=== PATIENT | female | born 1970 | race Hispanic/Latino ===

== ENCOUNTER 2024-02-11 11:54 | Observation (INO) | payer BC ==
[~2024-02-11] VITALS: Ht 154.9 cm; Wt 78.0 kg
--- NOTE | 2024-02-11 12:08 | ERN ---
ED Note History of Present Illness Stated Complaint: GENERAL BODY WEAKNESS N/V ABDOMINAL PAIN Chief Complaint: Abdominal Pain Time Seen by MD: 11:57 Dictation: PATIENT IS A 53-YEAR-OLD FEMALE COMING IN TODAY WITH MODERATE TO SEVERE SUPRAPUBIC AND LEFT LOWER QUADRANT PAIN TENDERNESS ONSET THIS MORNING. NAUSEA WITHOUT VOMITING NO FEVER NO CHILLS NO FLANK PAIN. STATES SHE JUST FINISHED A ROUND OF CIPRO THREE DAYS AGO FROM HER PRIMARY CARE DOCTOR FOR URINARY TRACT INFECTION. 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, vertigo Surgical History: Other History: Not Applicable RN Note Reviewed/Agreed w/PFSH: Yes Review of System Dictation CONSTITUTIONAL: NEGATIVE EXCEPT FOR HPI HEAD/FACE: NEGATIVE EXCEPT FOR HPI EENT: NEGATIVE EXCEPT FOR HPI RESPIRATORY: NEGATIVE EXCEPT FOR HPI GASTROINTESTINAL/ABDOMINAL: NEGATIVE EXCEPT FOR HPI SUPRAPUBIC AND LEFT LOWER QUADRANT PAIN TENDERNESS GENITOURINARY: NEGATIVE EXCEPT FOR HPI MUSCULOSKELETAL: NEGATIVE EXCEPT FOR HPI INTEGUMENTARY: NEGATIVE EXCEPT FOR HPI NEUROLOGICAL/PSYCH: NEGATIVE EXCEPT FOR HPI HEMATOLOGIC/LYMPHATIC: NEGATIVE EXCEPT FOR HPI ALL SYSTEMS NEGATIVE, EXCEPT NOTED ABOVE. 13 POINT REVIEW OF SYSTEMS ASSESSED AND ALL NEGATIVE EXCEPT FOR ABOVE. Initial Vital Sign VS Vital Signs Date Time Temp Pulse Resp B/P (MAP) Pulse Ox O2 Delivery O2 Flow Rate FiO2 02/11/24 11:56 98.1 76 18 130/80 98 02/11/24 12:16 Room Air* 0 21 Physical Exam Dictation VITAL SIGNS REVIEWED GENERAL APPEARANCE: ALERT, ORIENTED X 3, MODERATE ACUTE DISTRESS, WELL DEVELOPED, NOURISHED. HEAD AND FACE: NON-TRAUMATIC. EYES: PERRL, PINK CONJUNCTIVAS, EYELID NO TRAUMA, ANTERIOR CHAMBER WITH ARCUS SENILIS. EARS: PINNAS INTACT AND NO SIGNS OF TRAUMA OR ERYTHEMA EAR CANALS CLEAR AND NO DISCHARGE TM NO ERYTHEMA NOSE: NO DISCHARGE, NO BLEEDING. OROPHARYNX: MOUTH NORMAL, TONGUE PINK, PHARYNX CLEAR,NO ERYTHEMA, TONSILS NO EXUDATES, NO ABSCESSES NOTED, MUCOUS MEMBRANE MOIST NECK: SUPPLE, NON-TENDER, NO THYROMEGALY, NO MASSES, NO JVD, NO BRUITS BREAST:DEFERRED CHEST:NO TENDERNESS, NO CREPITUS, NO PARADOXICAL MOVEMENT, NO RETRACTIONS LUNGS:CLEAR, WELL-VENTILATED, SYMMETRIC, NO RALES, NO WHEEZING, NO RHONCHI, NO STRIDOR, GOOD BREATH SOUNDS BILATERALLY HEART: REGULAR RATE, REGULAR RHYTHM, NO MURMUR, NO GALLOPS VASCULAR: NO PERIPHERAL EDEMA, ABDOMEN: SOFT, POSITIVE BOWEL SOUNDS, NONDISTENDED, NO GUARDING, MODERATE SUPRAPUBIC AND LEFT LOWER QUADRANT TENDERNESS WITH PALPATION. RECTAL: DEFERRED GENITAL: DEFERRED NEUROLOGICAL: NORMAL SPEECH, MOTOR FUNCTION INTACT, SENSORY FUNCTION INTACT MUSCULOSKELETAL: NECK NONTENDER, FULL RANGE OF MOTION, BACK NONTENDER, FULL RANGE OF MOTION, EXTREMITIES: NONTENDER, FULL RANGE OF MOTION SKIN: COLOR PINK, DRY, NO TURGOR, NO RASH, NO LACERATIONS, NO ABRASIONS, NO CONTUSIONS. LYMPHATIC: DEFERRED Results (Laboratory/Radiology) Laboratory/Radiology Laboratory Tests Test 02/11/24 12:18 02/11/24 13:43 White Blood Count 17.3 K/uL (4.8-10.8) H Red Blood Count 4.37 MIL/uL (4.00-5.50) Hemoglobin 14.4 g/dL (12.0-16.0) Hematocrit 42.2 % (36-48) Mean Corpuscular Volume 96.6 fL (79-99) Mean Corpuscular Hemoglobin 33.0 pg (27.0-33.0) Mean Corpuscular Hemoglobin Concent 34.1 g/dL (32.0-36.0) Red Cell Distribution Width 13.9 % (11.0-15.5) Platelet Count 300 K/uL (130-400) Mean Platelet Volume 10.4 fL (7.5-10.5) Immature Granulocyte % (Auto) 0.6 % (0-1) Neutrophils (%) (Auto) 91.3 % (40.0-77.0) H Lymphocytes (%) (Auto) 5.1 % (21.0-51.0) L Monocytes (%) (Auto) 2.6 % (3.0-13.0) L Eosinophils (%) (Auto) 0.1 % (0.0-8.0) Basophils (%) (Auto) 0.3 % (0.0-5.0) Neutrophils # (Auto) 15.9 K/uL (1.8-7.7) H Lymphocytes # (Auto) 0.9 K/uL (1.0-4.8) L Monocytes # (Auto) 0.5 K/uL (0.1-1.0) Eosinophils # (Auto) 0.01 K/uL (0.00-0.70) Basophils # (Auto) 0.05 K/uL (0.00-0.20) Absolute Immature Granulocyte (auto 0.10 K/uL (0-1) Nucleated Red Blood Cells 0.0 % (0.0-0.19) White Cell Morphology Comment See comments Sodium Level 138 mmol/L (136-145) Potassium Level 4.0 mmol/L (3.5-5.1) Chloride Level 105 mmol/L (101-111) Carbon Dioxide Level 26 mmol/L (21-32) Blood Urea Nitrogen 10 mg/dL (7-18) Creatinine 0.6 mg/dL (0.5-1.0) Glomerular Filtration Rate Calc 109 mL/min (>90) Random Glucose 134 mg/dL (70-105) H Total Calcium 9.7 mg/dL (8.5-10.1) Lipase 33 U/L (16-77) Urine Color LIGHT-YELLOW (YELLOW) Urine Appearance CLEAR (CLEAR) Urine pH 6.5 (5.0-8.0) Urine Specific [place] 1.038 (1.001-1.031) Urine Protein NEGATIVE mg/dL (NEGATIVE) Urine Glucose (UA) NEGATIVE mg/dL (NEGATIVE) Urine Ketones 20 mg/dL (NEGATIVE) H Urine Occult Blood SMALL (NEGATIVE) H Urine Nitrate NEGATIVE (NEGATIVE) Urine Bilirubin NEGATIVE mg/dL (NEGATIVE) Urine Urobilinogen 0.2 mg/dL (0.2-1.0) Urine Leukocyte Esterase NEGATIVE [place]/uL Urine RBC 2-5 /HPF (0-1) H Urine WBC 2-5 /HPF (0-1) H Urine Squamous Epithelial Cells RARE /HPF (0-2) Urine Bacteria None /HPF (None Seen) QUINTEN: SEVERE LEFT LOWER QUADRANT PAIN ORDERING PHYSICIAN: BENJAMIN MANJARREZ NP PROCEDURE: ABD PEL W - CT ABDOMEN/PELVIS W/CONTRAST CT ABDOMEN/PELVIS W/CONTRAST HISTORY: Left lower abdominal pain COMPARISON: 09/01/2013 TECHNIQUE: Multiple sequential axial images of the abdomen and pelvis were obtained from the dome of the diaphragm through symphysis pubis. Patient was not given contrast through intravenous route. Oral contrast was not given. FINDINGS: No pleural effusion is seen bilaterally. There is no evidence of parenchymal disease or pulmonary nodule of the visualized lower lungs. Degenerative changes of the thoracolumbar spine are present. The heart is not enlarged. The liver, spleen, adrenal glands and pancreas are unremarkable. There is no evidence of hydronephrosis bilaterally. No evidence of renal stone is seen. Fecal material is seen in the colon. There are normal size retroperitoneal and mesenteric lymph nodes. No ascites is seen. No CT evidence of acute appendicitis is seen. Clinical correlation is recommend. There is fluid-filled small bowel loops and colon may be related to enterocolitis. Pelvic sidewalls are symmetric bilaterally. Bladder is well distended without wall thickening. IMPRESSION: 1. No CT evidence of acute appendicitis is seen. Clinical correlation is recommend. There is fluid-filled small bowel loops and colon may be related to enterocolitis. Labs Reviewed?: Yes ED Course ED Course Orders Procedure Category Date Status Time Cbc With Differential LAB 02/11/24 Complete 12:00 Urinalysis Profile LAB 02/11/24 Complete 12:00 Lipase LAB 02/11/24 Complete 12:00 Basic Metabolic Panel LAB 02/11/24 Complete 12:00 Ct Abdomen/Pelvis CT 02/11/24 Resulted W/Contrast 12:06 0.9%Nacl 1000ml (Ns PHA 02/11/24 Complete 1000ml) 12:30 Ketorolac PHA 02/11/24 Complete Tromethamine 30mg/Ml 12:30 Iohexol (Omnipaque) PHA 02/11/24 Complete 12:50 Blood Cult ADRY 02/11/24 In Process 13:43 Zosyn 3.375gm+Ns 50ml PHA 02/11/24 Complete (Zosyn 3.375gm+Ns 14:00 Morphine 4mg Syg PHA 02/11/24 Complete (Morphine 4mg Syg) 14:30 Current Medications Medications (Trade) Dose Ordered Sig/Kira Route PRN Reason Start Time Stop Time Status Last Admin Dose Admin Iohexol (Omnipaque) 75 ml STK-MED ONCE IV 02/11/24 12:50 02/11/24 12:50 DC Ketorolac Tromethamine (toRADol) 30 mg ONCE ONCE IVP 02/11/24 12:30 02/11/24 12:31 DC 02/11/24 12:22 Morphine Sulfate (morPHINE 4MG SYG) 4 mg ONCE ONCE IVP 02/11/24 14:30 02/11/24 14:31 DC 02/11/24 14:19 Piperacillin Sod/ Tazobactam Sod (Zosyn 3.375gm+NS 50ml) 3.375 gm ONCE ONCE IVPB 02/11/24 14:00 02/11/24 14:01 DC 02/11/24 14:19 Sodium Chloride 1,000 ml @ 0 mls/hr ONCE ONCE IV 02/11/24 12:30 02/11/24 12:31 DC 02/11/24 12:22 Vital Signs Date Time Temp Pulse Resp B/P (MAP) Pulse Ox O2 Delivery O2 Flow Rate FiO2 02/11/24 16:01 78 18 131/58 98 Room Air* 0 21 02/11/24 14:08 97.2 80 20 137/62 98 Room Air* 0 21 02/11/24 13:14 97.0 81 18 131/60 98 Room Air* 0 21 02/11/24 12:16 97.0 84 20 136/63 98 Room Air* 0 21 02/11/24 11:56 98.1 76 18 130/80 98 1445, patient states she feels better after treatment however still continues to have pain. Patient has required morphine x2 for management of pain and Toradol. We will admit patient to hospital for intractable pain and enter colitis 1607, spoke with , reviewed CT labs and urinalysis he agreed to admit patient. Medical Decision Making MDM MDM: Differential diagnosis: Diverticulitis/appendicitis/incarcerated hernia/gastroenteritis/food poisoning/pelvic pain/UTI/electrolyte imbalance Rationale: Tests considered and ordered secondary to shared decision making include: labs, and radiology Previous outside records reviewed: Old ER visits. See Risk of complication and/or morbidity or mortality of patient management: Mild Medications-Per medication reconciliation see nurse's notes Need for hospitalization: Patient does meet criteria for hospitalization. Intractable pain and management of colitis Need for emergency major/minor surgery: No There are no social concerns with this patient. Prescription drug management Prescriptions will include symptomatic care Patient's prior external medical records from other ER visits were reviewed by me as indicated. Prior testing and results from previous visits were reviewed. Prior tests were taken into account with medical decision making and resource utilization, independent historian/historians were used to obtain complete medical history. I independently interpreted the test that were performed, results were reviewed by me and considered findings on radiology if ordered. Medical management and examination interpretation discussions were had by me with other qualified healthcare professionals as indicated for the patient's care. DX & DISP Disposition: Inpatient Decision to Admit Time: 14:45 Departure Impression: Primary Impression: Bacterial enterocolitis Additional Impressions: Intractable abdominal pain, Nausea Condition: Stable Referrals: MAUREEN HUGGINS MD (PCP) Time of Disposition: 14:45 I have reviewed the case, and I agree with, Diagnosis and Plan BENJAMIN MANJARREZ NP Feb 11, 2024 12:08
[2024-02-11] MEDS: ketOROlac 30MG VIAL (30MG/ML) IVP ONE (12:22)
[2024-02-11] MEDS: 0.9%NACL 1000ML 1,000 ML IV ONE (12:22)
[2024-02-11 12:30] LABS: BASOPHILS # (AUTO) 0.05 K/uL (0.00-0.20); BASOPHILS % (AUTO) 0.3 % (0.0-5.0); EOSINOPHILS # (AUTO) 0.01 K/uL (0.00-0.70); EOSINOPHILS % (AUTO) 0.1 % (0.0-8.0); HEMATOCRIT 42.2 % (36-48); LYMPHOCYTES # (AUTO) 0.9 K/uL (1.0-4.8); LYMPHOCYTES % (AUTO) 5.1 % (21.0-51.0); MEAN CORPUSCULAR HGB CONC 34.1 g/dL (32.0-36.0); MEAN CORPUSCULAR VOLUME 96.6 fL (79-99); MONOCYTES # (AUTO) 0.5 K/uL (0.1-1.0); MONOCYTES % (AUTO) 2.6 % (3.0-13.0); NEUTROPHILS # (AUTO) 15.9 K/uL (1.8-7.7); NEUTROPHILS % (AUTO) 91.3 % (40.0-77.0); PLATELET COUNT (AUTO) 300 K/uL (130-400); RED BLOOD CELL COUNT(AUTO) 4.37 MIL/uL (4.00-5.50); RED CELL DISTRIBUTION WIDTH 13.9 % (11.0-15.5); WHITE BLOOD COUNT (AUTO) 17.3 K/uL (4.8-10.8)
[2024-02-11 12:41] LABS: CREATININE 0.6 mg/dL (0.5-1.0)
[2024-02-11] MEDS ORDERED: IOHEXOL-350 75 ML VIAL IV ONE (12:50)
--- NOTE | 2024-02-11 13:35 | HMCIMG ---
CT ABDOMEN/PELVIS W/CONTRAST HISTORY: Left lower abdominal pain COMPARISON: 09/01/2013 TECHNIQUE: Multiple sequential axial images of the abdomen and pelvis were obtained from the dome of the diaphragm through symphysis pubis. Patient was not given contrast through intravenous route. Oral contrast was not given. FINDINGS: No pleural effusion is seen bilaterally. There is no evidence of parenchymal disease or pulmonary nodule of the visualized lower lungs. Degenerative changes of the thoracolumbar spine are present. The heart is not enlarged. The liver, spleen, adrenal glands and pancreas are unremarkable. There is no evidence of hydronephrosis bilaterally. No evidence of renal stone is seen. Fecal material is seen in the colon. There are normal size retroperitoneal and mesenteric lymph nodes. No ascites is seen. No CT evidence of acute appendicitis is seen. Clinical correlation is recommend. There is fluid-filled small bowel loops and colon may be related to enterocolitis. Pelvic sidewalls are symmetric bilaterally. Bladder is well distended without wall thickening. IMPRESSION: 1. No CT evidence of acute appendicitis is seen. Clinical correlation is recommend. There is fluid-filled small bowel loops and colon may be related to enterocolitis. CT was performed with one or more following dose reduction techniques: automated exposure control, adjustment of the mA and kv according to patient's size, or use of a iterative reconstruction technique.
[2024-02-11 13:54] LABS: APPEARANCE,URINE CLEAR (CLEAR); BILIRUBIN,URINE NEGATIVE (NEGATIVE); COLOR,URINE LIGHT-YELLOW (YELLOW); GLUCOSE, URINE (UA) NEGATIVE (NEGATIVE); KETONES,URINE 20 mg/dL (NEGATIVE); LEUKOCYTE ESTERASE ,URINE NEGATIVE Leu/uL (NEGATIVE); NITRATE,URINE NEGATIVE (NEGATIVE); OCCULT BLOOD,URINE SMALL (NEGATIVE); PH,URINE 6.5 (5.0-8.0); PROTEIN,URINE NEGATIVE (NEGATIVE); UROBILINOGEN,URINE 0.2 mg/dL (0.2-1.0)
[2024-02-11 13:55] LABS: ADD UA MICROSCOPIC YES
[2024-02-11 14:04] LABS: MUCUS,URINE RARE LPF (None Seen); SQUAMOUS EPITHELIAL CELL,UR RARE /HPF (0-2)
[2024-02-11] MEDS: morPHINE 4 MG SYG IVP ONE (14:19)
[2024-02-11] MEDS: ZOSYN 3.375GM +NS 50ML IVPB ONE (14:19)
[2024-02-11] MEDS: ZOSYN 3.375GM +NS 50ML IV SCH (16:37)
[2024-02-11] MEDS: ondanSETRON 4MG INJ IVP PRN (17:26)
[2024-02-11] MEDS: morPHINE 2 MG SYG IVP PRN (17:27)
[2024-02-11] MEDS: 1/2 NS 1000ML 1,000 ML IV SCH (17:27)
--- NOTE | 2024-02-11 21:49 | NUR ---
as per pt she does not take any daily prescribed meds.
--- NOTE | 2024-02-11 22:27 | HP ---
HISTORY AND PHYSICAL NOTE DATE OF CONSULTATION: 02/11/24 REASON FOR CONSULTATION: Abdominal pain HISTORY OF PRESENT ILLNESS: PATIENT IS A 53-YEAR-OLD FEMALE COMING IN TODAY WITH MODERATE TO SEVERE SUPRAPUBIC AND LEFT LOWER QUADRANT PAIN TENDERNESS ONSET THIS MORNING. NAUSEA WITHOUT VOMITING NO FEVER NO CHILLS NO FLANK PAIN. STATES SHE JUST FINISHED A ROUND OF CIPRO THREE DAYS AGO FROM HER PRIMARY CARE DOCTOR FOR URINARY TRACT INFECTION. 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, vertigo Surgical History: Other History: Not Applicable RN Note Reviewed/Agreed w/PFSH: Yes Review of System Dictation CONSTITUTIONAL: NEGATIVE EXCEPT FOR HPI HEAD/FACE: NEGATIVE EXCEPT FOR HPI EENT: NEGATIVE EXCEPT FOR HPI RESPIRATORY: NEGATIVE EXCEPT FOR HPI GASTROINTESTINAL/ABDOMINAL: NEGATIVE EXCEPT FOR HPI SUPRAPUBIC AND LEFT LOWER QUADRANT PAIN TENDERNESS GENITOURINARY: NEGATIVE EXCEPT FOR HPI MUSCULOSKELETAL: NEGATIVE EXCEPT FOR HPI INTEGUMENTARY: NEGATIVE EXCEPT FOR HPI NEUROLOGICAL/PSYCH: NEGATIVE EXCEPT FOR HPI HEMATOLOGIC/LYMPHATIC: NEGATIVE EXCEPT FOR HPI ALL SYSTEMS NEGATIVE, EXCEPT NOTED ABOVE. 13 POINT REVIEW OF SYSTEMS ASSESSED AND ALL NEGATIVE EXCEPT FOR ABOVE. ALLERGIES: Coded Allergies: No Known Drug Allergies (Unverified Allergy, Unknown, 02/11/24) INPATIENT MEDS: Current Medications Medications Dose Ordered Sig/Kira Start Time Stop Time Status Last Admin Sodium Chloride 1,000 ml @ 125 mls/hr Q8H 02/11/24 16:30 03/12/24 16:29 02/11/24 17:27 Piperacillin Sod/ Tazobactam Sod 3.375 gm Q8H 02/11/24 16:30 02/21/24 16:29 02/11/24 16:37 Ondansetron HCl 4 mg Q6H PRN 02/11/24 17:00 03/12/24 16:59 02/11/24 17:26 Morphine Sulfate 2 mg Q4H PRN 02/11/24 17:00 02/18/24 16:59 02/11/24 21:25 VITAL SIGNS Vital Signs Date Time Temp Pulse Resp B/P (MAP) Pulse Ox O2 Delivery O2 Flow Rate FiO2 02/11/24 22:19 98.4 84 16 116/58 97 Room Air* 0 21 02/11/24 21:23 98.4 86 18 125/85 98 Room Air* 0 02/11/24 20:04 98.1 78 18 113/60 98 Room Air* 0 02/11/24 16:01 78 18 131/58 98 Room Air* 0 02/11/24 14:08 97.2 80 20 137/62 98 Room Air* 0 02/11/24 13:14 97.0 81 18 131/60 98 Room Air* 0 02/11/24 12:16 97.0 84 20 136/63 98 Room Air* 0 02/11/24 11:56 98.1 76 18 130/80 98 PHYSICAL EXAM Initial Vital Sign VS Vital Signs Date Time Temp Pulse Resp B/P (MAP) Pulse Ox O2 Delivery O2 Flow Rate FiO2 02/11/24 11:56 98.1 76 18 130/80 98 02/11/24 12:16 Room Air* 0 21 Physical Exam Dictation VITAL SIGNS REVIEWED GENERAL APPEARANCE: ALERT, ORIENTED X 3, MODERATE ACUTE DISTRESS, WELL DEVELOPED, NOURISHED. HEAD AND FACE: NON-TRAUMATIC. EYES: PERRL, PINK CONJUNCTIVAS, EYELID NO TRAUMA, ANTERIOR CHAMBER WITH ARCUS SENILIS. EARS: PINNAS INTACT AND NO SIGNS OF TRAUMA OR ERYTHEMA EAR CANALS CLEAR AND NO DISCHARGE TM NO ERYTHEMA NOSE: NO DISCHARGE, NO BLEEDING. OROPHARYNX: MOUTH NORMAL, TONGUE PINK, PHARYNX CLEAR,NO ERYTHEMA, TONSILS NO EXUDATES, NO ABSCESSES NOTED, MUCOUS MEMBRANE MOIST NECK: SUPPLE, NON-TENDER, NO THYROMEGALY, NO MASSES, NO JVD, NO BRUITS BREAST:DEFERRED CHEST:NO TENDERNESS, NO CREPITUS, NO PARADOXICAL MOVEMENT, NO RETRACTIONS LUNGS:CLEAR, WELL-VENTILATED, SYMMETRIC, NO RALES, NO WHEEZING, NO RHONCHI, NO STRIDOR, GOOD BREATH SOUNDS BILATERALLY HEART: REGULAR RATE, REGULAR RHYTHM, NO MURMUR, NO GALLOPS VASCULAR: NO PERIPHERAL EDEMA, ABDOMEN: SOFT, POSITIVE BOWEL SOUNDS, NONDISTENDED, NO GUARDING, MODERATE SUPRAPUBIC AND LEFT LOWER QUADRANT TENDERNESS WITH PALPATION. RECTAL: DEFERRED GENITAL: DEFERRED NEUROLOGICAL: NORMAL SPEECH, MOTOR FUNCTION INTACT, SENSORY FUNCTION INTACT MUSCULOSKELETAL: NECK NONTENDER, FULL RANGE OF MOTION, BACK NONTENDER, FULL RANGE OF MOTION, EXTREMITIES: NONTENDER, FULL RANGE OF MOTION SKIN: COLOR PINK, DRY, NO TURGOR, NO RASH, NO LACERATIONS, NO ABRASIONS, NO CONTUSIONS. LYMPHATIC: DEFERRED LABORATORY RESULTS Laboratory Tests 02/11/24 12:18: White Blood Count 17.3, Red Blood Count 4.37, Hemoglobin 14.4, Hematocrit 42.2, Mean Corpuscular Volume 96.6, Mean Corpuscular Hemoglobin 33.0, Mean Corpuscular Hemoglobin Concent 34.1, Red Cell Distribution Width 13.9, Platelet Count 300, Mean Platelet Volume 10.4, Immature Granulocyte % (Auto) 0.6, Neutrophils (%) (Auto) 91.3, Lymphocytes (%) (Auto) 5.1, Monocytes (%) (Auto) 2.6, Eosinophils (%) (Auto) 0.1, Basophils (%) (Auto) 0.3, Neutrophils # (Auto) 15.9, Lymphocytes # (Auto) 0.9, Monocytes # (Auto) 0.5, Eosinophils # (Auto) 0.01, Basophils # (Auto) 0.05, Absolute Immature Granulocyte (auto 0.10, Nucleated Red Blood Cells 0.0, White Cell Morphology Comment See comments, Sodium Level 138, Potassium Level 4.0, Chloride Level 105, Carbon Dioxide Level 26, Blood Urea Nitrogen 10, Creatinine 0.6, Glomerular Filtration Rate Calc 109, Random Glucose 134, Total Calcium 9.7, Lipase 33 02/11/24 13:43: Urine Color LIGHT-YELLOW, Urine Appearance CLEAR, Urine pH 6.5, Urine Specific [place] 1.038, Urine Protein NEGATIVE, Urine Glucose (UA) NEGATIVE, Urine Ketones 20, Urine Occult Blood SMALL, Urine Nitrate NEGATIVE, Urine Bilirubin NEGATIVE, Urine Urobilinogen 0.2, Urine Leukocyte Esterase NEGATIVE, Urine RBC 2-5, Urine WBC 2-5, Urine Squamous Epithelial Cells RARE, Urine Bacteria None PROBLEM LIST: (1) Nausea ICD Codes: R11.0 - Nausea (2) Intractable abdominal pain ICD Codes: R10.9 - Unspecified abdominal pain (3) Bacterial enterocolitis ICD Codes: A04.9 - Bacterial intestinal infection, unspecified PLAN Hydrate empiric antibiotic monitor consult ARLENE DAVIS MD Feb 11, 2024 22:27
[2024-02-11 23:44] VITALS: BP 125/65; PULSE 91; RESP 18; TEMP 98.5
[2024-02-12 05:08] VITALS: BP 113/61; PULSE 88; RESP 18; TEMP 98.4
[2024-02-12 06:13] LABS: BASOPHILS # (AUTO) 0.03 K/uL (0.00-0.20); BASOPHILS % (AUTO) 0.2 % (0.0-5.0); EOSINOPHILS # (AUTO) 0.01 K/uL (0.00-0.70); EOSINOPHILS % (AUTO) 0.1 % (0.0-8.0); HEMATOCRIT 35.6 % (36-48); IMMATURE GRANULOCYTE ABSOLUTE 0.05 K/uL (0-1); LYMPHOCYTES # (AUTO) 1.3 K/uL (1.0-4.8); LYMPHOCYTES % (AUTO) 9.8 % (21.0-51.0); MEAN CORPUSCULAR HEMOGLOBIN 32.7 pg (27.0-33.0); MEAN CORPUSCULAR HGB CONC 33.4 g/dL (32.0-36.0); MEAN CORPUSCULAR VOLUME 97.8 fL (79-99); MONOCYTES % (AUTO) 7.2 % (3.0-13.0); NEUTROPHILS # (AUTO) 10.8 K/uL (1.8-7.7); NEUTROPHILS % (AUTO) 82.3 % (40.0-77.0); PLATELET COUNT (AUTO) 271 K/uL (130-400); RED BLOOD CELL COUNT(AUTO) 3.64 MIL/uL (4.00-5.50); RED CELL DISTRIBUTION WIDTH 14.1 % (11.0-15.5); WHITE BLOOD COUNT (AUTO) 13.1 K/uL (4.8-10.8)
[2024-02-12 06:27] LABS: CREATININE 0.7 mg/dL (0.5-1.0); MAGNESIUM 1.9 mg/dL (1.80-2.40); POTASSIUM 3.2 mmol/L (3.5-5.1)
[2024-02-12 08:12] VITALS: BP 128/71; PULSE 88; RESP 16; TEMP 98.4
[2024-02-12 08:51] VITALS: O2SAT 100
[2024-02-12] MEDS ORDERED: PoTASSium chl 10% ELIXIR 20MEQ 20 MEQ/15 ML UDCUP PO PRN (09:00)
[2024-02-12] MEDS ORDERED: PoTASSium chloRIDE 20MEQ/100ML 100 ML IV PRN (09:00)
[2024-02-12] MEDS: PoTASSium chloRIDE 20MEQ ER 20 MEQ ERTAB PO PRN (10:39)
[2024-02-12] MEDS: acetaMINOPHEN 325 MG TAB PO PRN (10:40)
[2024-02-12 11:19] VITALS: BP 115/68; PULSE 90; RESP 16; TEMP 98.4
--- NOTE | 2024-02-12 15:09 | NUR ---
DISCHARGE PT PIC DC'S PT VERBALIZED UNDERSTANDING OF DISCHARGE INSTRUCTIONS PT GATHERED AND TOOK ALL BELONGINGS PT HAD NO FURTHER QUESTIONS ATI TIME OF DISCHARGE
--- NOTE | 2024-02-12 22:31 | DS ---
Discharge Summary DIAGNOSE(S): [Gastroenteritis dehydration] HOSPITAL COURSE SUMMARY: [Did well with hydration tolerated diet and was discharged] MANAGER STRATEGIC SOURCING(S): [] PROCEDURE(S)/TREATMENT(S): [] PROBLEM(S): [] FOLLOW-UP TEST(S): [None] DISCHARGE INSTRUCTIONS: [Follow up in 1-2 days] Home Meds No Active Prescriptions or Reported Meds ARLENE VEGA MD Feb 12, 2024 22:31
== END 2024-02-12 15:45 | disposition home or self-care (01) ==
LOC: EDH 11:54 → UNDOADMIN 11:55 → EDHIP 11:55 → INTOOBSV 16:11 → EDHIP 16:11 → 3AH 21:41
PROVIDERS: ADMIT Internal Medicine; ATTEND Internal Medicine
DX: A04.9 Bacterial intestinal infection, unspecified (principal); E86.0 Dehydration; R10.32 Left lower quadrant pain; N39.0 Urinary tract infection, site not specified; Z79.899 Other long term (current) drug therapy
CPT/HCPCS: 99285; 74177; 96366 ×2; 96365; 96375 ×2; 96361 ×2; 96376; 80048 ×2; 83690; 85025 ×2; 87040 ×2; 81001; 36415 ×2; 83735; J2270 ×3; J7030; J2405; J1885; J2543 ×4; Q9967; G0378

== ENCOUNTER 2024-03-11 09:45 | Emergency (ER) | payer BC ==
[~2024-03-11] VITALS: Ht 154.9 cm; Wt 75.3 kg
[~2024-03-11 09:45] MED LIST: POTA20PA32 PO
--- NOTE | 2024-03-11 10:09 | ERN ---
General Chief Complaint: Abdominal Pain Stated Complaint: ABD PAIN Time Seen by MD: 09:49 History of Present Illness Initial Comments 53-year-old female who presents for abdominal pain 12/17. Brought in by EMS. Patient has a recent diagnosis of diverticulitis. She was briefly hospitalized a couple of weeks ago. She is currently taking outpatient Flagyl. Yesterday she felt some constipation and tenesmus. She had a stool that was loose with some blood. This morning she was tending to 10 cramping all over the lower abdomen. It is nonradiating. She also reports multiple episodes of vomiting. No fever. Currently taking Flagyl and tizanidine. PCP: Josiah Deluca No surgical history Allergies: Coded Allergies: No Known Drug Allergies (Unverified Allergy, Unknown, 02/11/24) Home Meds Active Scripts Ondansetron (Ondansetron Odt) 4 Mg Tab.rapdis, 1 TAB PO Q6HPRN PRN for nausea/vomiting for 3 Days, #12 TAB 0 Refills Prov:BETH VAZQUEZ DO 03/11/24 Hydrocodone/Acetaminophen (Hydrocodon-Acetaminophen 5-325) 5 Mg-325 Mg Tablet, 1 TAB PO TIDP PRN for pain for 5 Days, #15 TAB 0 Refills Prov:BETH VAZQUEZ DO 03/11/24 Reported Medications Potassium Chloride (Potassium Chloride) 20 Meq Packet, 1 PACKET PO BID for 30 Days, #30 PACKET 0 Refills 02/24/24 Past Medical History Past Medical History: Other Medical History Other: DIVERTICULITIS Past Surgical History: None Family History Family History: Negative Social History Social History: Negative Female( History) History: Not Applicable ROS Dictation CONSTITUTIONAL: No chills, no fever, no weakness, no diaphoresis, no malaise. HEAD/FACE: No signs of trauma. EENT: No eye pain, no blurred vision, no tearing, no double vision, no ear pain, no ear discharge, no nose pain, no nasal congestion, no throat pain, no throat swelling, no mouth pain. RESPIRATORY: No cough, no orthopnea, no SOB, no stridor, no wheezing. CARDIOVASCULAR: No chest pain, no edema, no palpitations, no syncope. GASTROINTESTINAL/ABDOMINAL: Abdominal pain vomiting bloody stool GENITOURINARY: No abnormal discharge, no dysuria, no frequent urination, no hematuria. No complaints of pain in the genitals. MUSCULOSKELETAL: No back pain, no gout, no joint pain, no joint swelling, no muscle pain, no muscle stiffness, no neck pain. INTEGUMENTARY: No change in color, no change in hair/nails, no dryness, no lesion, no lumps, no rash. NEUROLOGICAL/PSYCH: No anxiety, not depressed, no emotional problem, no headache, no numbness, no pre-existing deficit, no history of seizures, no tremors, no weakness. HEMATOLOGIC/LYMPHATIC: Not anemic, no history of blood clots, no apparent bleeding, no bruising, glands not swollen. All Systems Negative, Except as Noted. Physical Exam Physical Exam Dictation VITAL SIGNS: Reviewed. GENERAL APPEARANCE: Alert, oriented x3, no acute distress, EYES: PERRL, pink conjunctivas, eyelid no trauma, anterior chamber clear. EARS: Pinnas intact and no signs of trauma or erythema. Ear canals clear and no discharge. TMs no erythema. NOSE: No discharge, no bleeding. OROPHARYNX: Mouth normal, teeth no caries, tongue pink. Pharynx clear, no erythema. Tonsils no exudates, no abscesses noted. Mucous membrane moist. NECK: Supple, non-tender, no thyromegaly, no masses, no JVD, no bruits. BREAST: Deferred. CHEST: No tenderness, no crepitus, no paradoxical movement, no retractions. LUNGS: Clear, well-ventilated, symmetric, no rales, no wheezing, no rhonchi, no stridor, good breath sounds bilaterally. HEART: Regular rate, regular rhythm, no murmur, no gallops. VASCULAR: No peripheral edema. ABDOMEN: Soft, positive bowel sounds, nondistended, no guarding, nontender, no rebound, no masses no hepatomegaly, no splenomegaly, no Perez's sign, no hernias. RECTAL: Deferred. GENITAL: Deferred. NEUROLOGICAL: Normal speech, gross motor function intact, gross sensory function intact. MUSCULOSKELETAL: Neck nontender, full range of motion, back nontender, full range of motion. EXTREMITIES: Nontender, full range of motion. SKIN: Color pink, dry, no turgor, no rash, no lacerations, no abrasions, no contusions. LYMPHATICS: Deferred. Results Laboratory and Microbiology Lab and Micro Result Laboratory Tests Test 03/11/24 10:19 White Blood Count 10.2 K/uL (4.8-10.8) Red Blood Count 3.89 MIL/uL (4.00-5.50) L Hemoglobin 12.7 g/dL (12.0-16.0) Hematocrit 36.8 % (36-48) Mean Corpuscular Volume 94.6 fL (79-99) Mean Corpuscular Hemoglobin 32.6 pg (27.0-33.0) Mean Corpuscular Hemoglobin Concent 34.5 g/dL (32.0-36.0) Red Cell Distribution Width 14.1 % (11.0-15.5) Platelet Count 403 K/uL (130-400) H Mean Platelet Volume 10.2 fL (7.5-10.5) Immature Granulocyte % (Auto) 0.3 % (0-1) Neutrophils (%) (Auto) 85.1 % (40.0-77.0) H Lymphocytes (%) (Auto) 7.5 % (21.0-51.0) L Monocytes (%) (Auto) 6.9 % (3.0-13.0) Eosinophils (%) (Auto) 0.0 % (0.0-8.0) Basophils (%) (Auto) 0.2 % (0.0-5.0) Neutrophils # (Auto) 8.7 K/uL (1.8-7.7) H Lymphocytes # (Auto) 0.8 K/uL (1.0-4.8) L Monocytes # (Auto) 0.7 K/uL (0.1-1.0) Eosinophils # (Auto) 0.00 K/uL (0.00-0.70) Basophils # (Auto) 0.02 K/uL (0.00-0.20) Absolute Immature Granulocyte (auto 0.03 K/uL (0-1) Nucleated Red Blood Cells 0.0 % (0.0-0.19) White Cell Morphology Comment See comments Sodium Level 140 mmol/L (136-145) Potassium Level 3.3 mmol/L (3.5-5.1) L Chloride Level 104 mmol/L (101-111) Carbon Dioxide Level 26 mmol/L (21-32) Blood Urea Nitrogen 10 mg/dL (7-18) Creatinine 0.6 mg/dL (0.5-1.0) Glomerular Filtration Rate Calc 109 mL/min (>90) Random Glucose 120 mg/dL (70-105) H Lactic Acid Level 1.4 mmol/L (0.8-2.5) Total Calcium 9.7 mg/dL (8.5-10.1) Total Bilirubin 0.7 mg/dL (0.2-1.0) Direct Bilirubin 0.1 mg/dL (0.0-0.3) Aspartate Amino Transf (AST/SGOT) 24 U/L (10-37) Alanine Aminotransferase (ALT/SGPT) 25 U/L (12-78) Alkaline Phosphatase 83 U/L (50-136) Total Protein 7.7 g/dL (6.0-8.3) Albumin 3.4 g/dL (3.5-5.0) L Lipase 21 U/L (16-77) MDM CC: Generalized abdominal pain, Possible bloody stool, episode of diarrhea Historian: Patient Comorbidities: History of diverticulitis Limitations of social determinants of health: None Vital signs: Pulse 103 otherwise unremarkable. Abdomen is moderately tender. Patient is uncomfortable due to the pain. Differential diagnosis: Diverticulitis, surgical pathology, dehydration, electrolyte abnormalities, anemia, other. Labs show no leukocytosis, left shift 85% neutrophils. No bands. Chemistry panel is unremarkable. Liver function tests unremarkable. Lipase unremarkable. Labs independently ordered and interpreted by me. CT scan of the abdomen and pelvis per my independent interpretation shows no ob vious surgical pathology, can not find any obvious diverticula. There are some lesions in the liver. Radiology's confirmed the report. Possibly some metastatic disease to the liver and possibly a mass in the colon. Patient was currently being treated for diverticulitis, but I am worried that there may be a mass in the colon. Patient does need colonoscopy. I reviewed the patient's chart, she was recently admitted for diverticulitis and treated, and is pending an outpatient colonoscopy. Patient received 1 L normal saline, IV ondansetron, and IV hydromorphone here in the ER. I actually contacted the patient's primary doctor, Dr. Deluca. We discussed with the patient would be nefit inpatient admission for GI consultation. Since she is actively having discomfort, we agreed that the patient will follow up with Dr. Deluca tomorrow and he will coordinate a an urgent colonoscopy as an outpatient. Patient was made aware of this plan. She will continue her Flagyl. I will discharge her with some pain control and recommend she continues with the antibiotics and outpatient workup. Patient is agreeable to the plan. REASON: lower abd pain, hx diverticulitis ORDERING PHYSICIAN: BETH VAZQUEZ DO PROCEDURE: ABD PEL W - CT ABDOMEN/PELVIS W/CONTRAST CC: lower abdominal pain CT ABDOMEN/PELVIS W/CONTRAST REASON: lower abd pain, hx diverticulitis COMPARISON: 09/02/2023. TECHNIQUE: Images are obtained from lung bases to symphysis pubis following IV contrast, 75 cc Omnipaque 350. FINDINGS: Lung bases are clear. There are multiple low-attenuation liver lesions, poorly defined, largest is 12 mm. These are suspicious for metastatic disease. Ultrasound would be helpful to confirm.. There are normal-appearing kidneys.. Spleen and pancreas appear unremarkable. The gallbladder appears normal as well. There is focal irregularity in the proximal descending colon just beyond the splenic flexure. Findings appear consistent with a possible constricting lesion, this could represent colon cancer. Colonoscopy is recommended for further evaluation. Bowel loops appear otherwise unremarkable. The appendix was not separately identified. There is no evidence of free fluid or intraperitoneal air. There are no focal fluid collections. Aorta and retroperitoneum appear normal as do pelvic soft tissue structures. There is no retroperitoneal or pelvic lymphadenopathy. The anterior abdominal wall is intact. Osseous structures appear unremarkable. IMPRESSION: 1. Multiple small low-attenuation lesions in the liver which could represent metastatic disease. 2. Probable mass in the proximal descending colon just beyond the splenic flexure, and apical or constricting type lesion could cause this appearance, colonoscopy recommended for further evaluation. ED Course Orders Procedure Category Date Status Time Cbc With Differential LAB 03/11/24 Complete 09:57 Ct Abdomen/Pelvis CT 03/11/24 Resulted W/Contrast 09:57 12 Lead Ekg Tracing- EKG 03/11/24 Complete Technical 09:57 0.9%Nacl 1000ml (Ns PHA 03/11/24 Complete 1000ml) 10:00 Hydromorphone 1 Mg PHA 03/11/24 Complete Inj (Dilaudid 1mg Inj 10:00 Ondansetron 4mg Inj PHA 03/11/24 Complete (Zofran 4mg Inj) 10:00 Lipase LAB 03/11/24 Complete 09:57 Basic Metabolic Panel LAB 03/11/24 Complete 09:57 Hepatic Function Panel LAB 03/11/24 Complete 09:57 Lactic Acid LAB 03/11/24 Complete 09:57 Blood Cult ADRY 03/11/24 In Process 09:57 Iohexol (Omnipaque) PHA 03/11/24 Complete 12:06 Current Medications Medications (Trade) Dose Ordered Sig/Kira Route PRN Reason Start Time Stop Time Status Last Admin Dose Admin Hydromorphone HCl (DiLAUDid 1MG INJ) 1 mg ONCE ONCE IVP 03/11/24 10:00 03/11/24 10:01 DC 03/11/24 10:56 Iohexol (Omnipaque) 75 ml STK-MED ONCE IV 03/11/24 12:06 03/11/24 12:06 DC Ondansetron HCl (zoFRAN 4MG INJ) 4 mg ONCE ONCE IVP 03/11/24 10:00 03/11/24 10:01 DC 03/11/24 10:56 Sodium Chloride 1,000 ml @ 0 mls/hr ONCE ONCE IV 03/11/24 10:00 03/11/24 10:01 DC 03/11/24 10:55 Vital Signs Date Time Temp Pulse Resp B/P (MAP) Pulse Ox O2 Delivery O2 Flow Rate FiO2 03/11/24 14:34 97.9 84 16 112/69 99 Room Air* 0 03/11/24 13:24 99.0 90 16 107/62 97 Room Air* 0 03/11/24 12:17 99.1 92 18 105/51 99 Room Air* 0 03/11/24 09:49 103 18 135/73 98 Room Air 0 DX & DISP Disposition: Discharge Departure Impression: Primary Impression: Intractable abdominal pain Additional Impressions: Nausea, Colon abnormality Condition: Stable Scripts Ondansetron (Ondansetron Odt) 4 Mg Tab.rapdis 1 TAB PO Q6HPRN PRN for nausea/vomiting for 3 Days, #12 TAB 0 Refills Prov: BETH VAZQUEZ DO 03/11/24 Hydrocodone/Acetaminophen (Hydrocodon-Acetaminophen 5-325) 5 Mg-325 Mg Tablet 1 TAB PO TIDP PRN for pain for 5 Days, #15 TAB 0 Refills Prov: BETH VAZQUEZ DO 03/11/24 Additional Instructions: There are no life-threatening findings on your workup here today. Your vital signs have been stable. Your blood work is unremarkable. The CT scan does show some abnormalities in your colon and possibly your liver. As we discussed, you need a colonoscopy. Please follow up with Dr. Deluca. He is expecting you to visit his office tomorrow. I have prescribed [place] tabs to use for pain. Use as needed. I have prescribed ondansetron dissolvable tabs to use for nausea and vomiting. Use as needed. Please return to the emergency department if you have any concerns. Referrals: JOSIAH DELUCA MD (PCP) BETH VAZQUEZ DO Mar 11, 2024 10:09
--- NOTE | 2024-03-11 10:22 | EKG ---
[facility] Test Date: 2024-03-11 Test Time: 10:20:31 Pat Name: RAMANDEEP HENRIQUEZ Department: ED Room: Gender: F Medical Services Manager: [id number] : 1970 Requested By: BETH VAZQUEZ Order Number: [id number] Reading MD: Luis Renee Measurements Intervals [place] Rate: 98 P: -19 FL: 131 QRS: 68 QRSD: 87 T: -13 QT: 348 QTc: 443 Interpretive Statements Sinus rhythm Compared to ECG 12/22/2015 15:44:56 Sinus tachycardia no longer present Myocardial infarct finding no longer present Electronically Signed On 03-12-2024 12:18:08 INTERNET PROJECT MANAGER by Luis Renee Please click the below link to view image of tracing.
[2024-03-11 10:29] LABS: BASOPHILS # (AUTO) 0.02 K/uL (0.00-0.20); BASOPHILS % (AUTO) 0.2 % (0.0-5.0); HEMATOCRIT 36.8 % (36-48); IMMATURE GRANULOCYTE ABSOLUTE 0.03 K/uL (0-1); LYMPHOCYTES # (AUTO) 0.8 K/uL (1.0-4.8); LYMPHOCYTES % (AUTO) 7.5 % (21.0-51.0); MEAN CORPUSCULAR HEMOGLOBIN 32.6 pg (27.0-33.0); MEAN CORPUSCULAR HGB CONC 34.5 g/dL (32.0-36.0); MEAN CORPUSCULAR VOLUME 94.6 fL (79-99); MONOCYTES # (AUTO) 0.7 K/uL (0.1-1.0); MONOCYTES % (AUTO) 6.9 % (3.0-13.0); NEUTROPHILS # (AUTO) 8.7 K/uL (1.8-7.7); NEUTROPHILS % (AUTO) 85.1 % (40.0-77.0); PLATELET COUNT (AUTO) 403 K/uL (130-400); RED BLOOD CELL COUNT(AUTO) 3.89 MIL/uL (4.00-5.50); RED CELL DISTRIBUTION WIDTH 14.1 % (11.0-15.5); WHITE BLOOD COUNT (AUTO) 10.2 K/uL (4.8-10.8)
[2024-03-11 10:45] LABS: CREATININE 0.6 mg/dL (0.5-1.0); POTASSIUM 3.3 mmol/L (3.5-5.1)
[2024-03-11 10:50] LABS: ALBUMIN 3.4 g/dL (3.5-5.0); BILIRUBIN,DIRECT 0.1 mg/dL (0.0-0.3); BILIRUBIN,TOTAL 0.7 mg/dL (0.2-1.0); TOTAL PROTEIN, SERUM 7.7 g/dL (6.0-8.3)
[2024-03-11] MEDS: 0.9%NACL 1000ML 1,000 ML IV ONE (10:55)
[2024-03-11] MEDS: hydroMORPHone 1 MG INJ IVP ONE (10:56)
[2024-03-11] MEDS: ondanSETRON 4MG INJ IVP ONE (10:56)
[2024-03-11] MEDS ORDERED: IOHEXOL-350 75 ML VIAL IV ONE (12:06)
--- NOTE | 2024-03-11 13:04 | HMCIMG ---
CT ABDOMEN/PELVIS W/CONTRAST REASON: lower abd pain, hx diverticulitis COMPARISON: 09/02/2023. TECHNIQUE: Images are obtained from lung bases to symphysis pubis following IV contrast, 75 cc Omnipaque 350. FINDINGS: Lung bases are clear. There are multiple low-attenuation liver lesions, poorly defined, largest is 12 mm. These are suspicious for metastatic disease. Ultrasound would be helpful to confirm.. There are normal-appearing kidneys.. Spleen and pancreas appear unremarkable. The gallbladder appears normal as well. There is focal irregularity in the proximal descending colon just beyond the splenic flexure. Findings appear consistent with a possible constricting lesion, this could represent colon cancer. Colonoscopy is recommended for further evaluation. Bowel loops appear otherwise unremarkable. The appendix was not separately identified. There is no evidence of free fluid or intraperitoneal air. There are no focal fluid collections. Aorta and retroperitoneum appear normal as do pelvic soft tissue structures. There is no retroperitoneal or pelvic lymphadenopathy. The anterior abdominal wall is intact. Osseous structures appear unremarkable. IMPRESSION: 1. Multiple small low-attenuation lesions in the liver which could represent metastatic disease. 2. Probable mass in the proximal descending colon just beyond the splenic flexure, and apical or constricting type lesion could cause this appearance, colonoscopy recommended for further evaluation. CT was performed with one or more following dose reduction techniques: automated exposure control, adjustment of the mA and kv according to patient's size, or use of a iterative reconstruction technique.
[2024-03-11] MEDS ORDERED: HYDR-4060 PO (13:54)
[2024-03-11] MEDS ORDERED: ONDA-243 PO (13:54)
[2024-03-11 14:34] VITALS: BP 112/69; PULSE 84; RESP 16; TEMP 97.9; O2SAT 99
== END 2024-03-11 14:34 | disposition home or self-care (01) ==
LOC: EDH 09:45
DX: R10.84 Generalized abdominal pain (principal); R11.0 Nausea; K59.89 Other specified functional intestinal disorders; Z79.899 Other long term (current) drug therapy
CPT/HCPCS: 99284; 74177; 96374; 96361; 96375; 80076; 80048; 83690; 85025; 87040 ×2; 83605; 36415; 93005; J1171; J7030; J2405; Q9967

== ENCOUNTER → 2024-10-13 | Outpatient (CLI) | payer BC ==
[~2024-10-13] MED LIST changes: +ACYC-429 PO; +NYST100033 PO
== END | disposition home or self-care (01) ==
LOC: RAH 09:33
PROVIDERS: ATTEND Internal Medicine
DX: Z12.31 Encounter for screening mammogram for malignant neoplasm of breast (principal)
CPT/HCPCS: 77067

== ENCOUNTER 2024-11-14 17:32 | Emergency (ER) | payer BC ==
[~2024-11-14] VITALS: Ht 152.4 cm; Wt 76.2 kg
[2024-11-14 17:53] LABS: IMMATURE GRANULOCYTE ABSOLUTE 0.02 K/uL (0-1); NUCLEATED RED BLOOD CELLS 0.0 % (0.0-0.19); PLATELET COUNT (AUTO) 218 K/uL (130-400); RED BLOOD CELL COUNT(AUTO) 4.08 MIL/uL (4.00-5.50); RED CELL DISTRIBUTION WIDTH 15.9 % (11.0-15.5); WHITE BLOOD COUNT (AUTO) 6.3 K/uL (4.8-10.8)
[2024-11-14 17:57] LABS: APPEARANCE,URINE CLEAR (CLEAR); GLUCOSE, URINE (UA) NEGATIVE (NEGATIVE); LEUKOCYTE ESTERASE ,URINE 25 Leu/uL (NEGATIVE); NITRATE,URINE NEGATIVE (NEGATIVE); OCCULT BLOOD,URINE SMALL (NEGATIVE); OTHER CASTS, URINE 1 /LPF (None Seen); SQUAMOUS EPITHELIAL CELL,UR FEW /HPF (0-2)
[2024-11-14 18:05] LABS: CREATININE 0.6 mg/dL (0.5-1.0); GLOMERULAR FILTR. RATE CALC 109.0 mL/min (>90); GLUCOSE,RANDOM 101.0 mg/dL (70-105); SODIUM SERUM 141.0 mmol/L (136-145); UREA NITROGEN, BLOOD 10.0 mg/dL (7-18)
[2024-11-14] MEDS: PHENAZOpyridine HCL 200 MG TAB 200 MG TABLET PO ONE (18:15)
--- NOTE | 2024-11-14 18:22 | ERN ---
General Chief Complaint: Painful Urination Stated Complaint: PAINFUL URINATION Time Seen by MD: 17:34 Source: patient History of Present Illness Initial Comments Patient is a 53-year-old female coming in complaining of dysuria. Per patient these symptoms began two days ago. No fever no chills some nausea no vomiting. Allergies: Coded Allergies: No Known Drug Allergies (Unverified Allergy, Unknown, 02/11/24) Home Meds Active Scripts Nystatin (Nystatin) 100,000 Unit/Ml Oral.susp, 5 ML PO QID for 10 Days, #200 ML 0 Refills Prov:JOSIAH MATHEW 09/26/24 Acyclovir (Acyclovir) 400 Mg Tablet, 1 TAB PO TID for 7 Days, #21 TAB 0 Refills Prov:JOSIAH MATHEW 09/26/24 Reported Medications Potassium Chloride (Potassium Chloride) 20 Meq Packet, 1 PACKET PO BID for 30 Days, #30 PACKET 0 Refills 02/24/24 Past Medical History Past Medical History: Cancer, Other Medical History Other: DIVERTICULITIS Past Surgical History: None Family History Family History: Negative Social History Social History: Negative Female( History) History: Not Applicable ROS Dictation CONSTITUTIONAL: No chills, no fever, no weakness, no diaphoresis, no malaise. HEAD/FACE: No signs of trauma. EENT: No eye pain, no blurred vision, no tearing, no double vision, no ear pain, no ear discharge, no nose pain, no nasal congestion, no throat pain, no throat swelling, no mouth pain. RESPIRATORY: No cough, no orthopnea, no SOB, no stridor, no wheezing. CARDIOVASCULAR: No chest pain, no edema, no palpitations, no syncope. GASTROINTESTINAL/ABDOMINAL: No abdominal pain, no constipation, no diarrhea, no nausea, no vomiting. GENITOURINARY: No abnormal discharge, dysuria, no frequent urination, no hematuria. No complaints of pain in the genitals. MUSCULOSKELETAL: No back pain, no gout, no joint pain, no joint swelling, no muscle pain, no muscle stiffness, no neck pain. INTEGUMENTARY: No change in color, no change in hair/nails, no dryness, no lesion, no lumps, no rash. NEUROLOGICAL/PSYCH: No anxiety, not depressed, no emotional problem, no headache, no numbness, no pre-existing deficit, no history of seizures, no tremors, no weakness. HEMATOLOGIC/LYMPHATIC: Not anemic, no history of blood clots, no apparent bleeding, no bruising, glands not swollen. All Systems Negative, Except as Noted. Physical Exam Physical Exam Dictation VITAL SIGNS: Reviewed. GENERAL APPEARANCE: Alert, oriented x3, no acute distress, obese. HEAD AND FACE: Non-traumatic. EYES: PERRL, pink conjunctivas, eyelid no trauma, anterior chamber clear. EARS: Pinnas intact and no signs of trauma or erythema. Ear canals clear and no discharge. TMs no erythema. NOSE: No discharge, no bleeding. OROPHARYNX: Mouth normal, teeth no caries, tongue pink. Pharynx clear, no erythema. Tonsils no exudates, no abscesses noted. Mucous membrane moist. NECK: Supple, non-tender, no thyromegaly, no masses, no JVD, no bruits. BREAST: Deferred. CHEST: No tenderness, no crepitus, no paradoxical movement, no retractions. LUNGS: Clear, well-ventilated, symmetric, no rales, no wheezing, no rhonchi, no stridor, good breath sounds bilaterally. HEART: Regular rate, regular rhythm, no murmur, no gallops. VASCULAR: No peripheral edema. ABDOMEN: Soft, positive bowel sounds, nondistended, no guarding, nontender, no rebound, no masses no hepatomegaly, no splenomegaly, no Perez's sign, no hernias. RECTAL: Deferred. GENITAL: Deferred. NEUROLOGICAL: Normal speech, gross motor function intact, gross sensory function intact. MUSCULOSKELETAL: Neck nontender, full range of motion, back nontender, full range of motion. EXTREMITIES: Nontender, full range of motion. SKIN: Color pink, dry, no turgor, no rash, no lacerations, no abrasions, no contusions. LYMPHATICS: Deferred. Results Laboratory and Microbiology Lab and Micro Result Laboratory Tests Test 11/14/24 17:45 White Blood Count 6.3 K/uL (4.8-10.8) Red Blood Count 4.08 MIL/uL (4.00-5.50) Hemoglobin 13.1 g/dL (12.0-16.0) Hematocrit 40.2 % (36-48) Mean Corpuscular Volume 98.5 fL (79-99) Mean Corpuscular Hemoglobin 32.1 pg (27.0-33.0) Mean Corpuscular Hemoglobin Concent 32.6 g/dL (32.0-36.0) Red Cell Distribution Width 15.9 % (11.0-15.5) H Platelet Count 218 K/uL (130-400) Mean Platelet Volume 10.6 fL (7.5-10.5) H Immature Granulocyte % (Auto) 0.3 % (0-1) Neutrophils (%) (Auto) 53.1 % (40.0-77.0) Lymphocytes (%) (Auto) 31.1 % (21.0-51.0) Monocytes (%) (Auto) 12.7 % (3.0-13.0) Eosinophils (%) (Auto) 2.5 % (0.0-8.0) Basophils (%) (Auto) 0.3 % (0.0-5.0) Neutrophils # (Auto) 3.3 K/uL (1.8-7.7) Lymphocytes # (Auto) 2.0 K/uL (1.0-4.8) Monocytes # (Auto) 0.8 K/uL (0.1-1.0) Eosinophils # (Auto) 0.16 K/uL (0.00-0.70) Basophils # (Auto) 0.02 K/uL (0.00-0.20) Absolute Immature Granulocyte (auto 0.02 K/uL (0-1) Nucleated Red Blood Cells 0.0 % (0.0-0.19) Urine Color YELLOW (YELLOW) Urine Appearance CLEAR (CLEAR) Urine pH 5.5 (5.0-8.0) Urine Specific [place] 1.018 (1.001-1.031) Urine Protein NEGATIVE mg/dL (NEGATIVE) Urine Glucose (UA) NEGATIVE mg/dL (NEGATIVE) Urine Ketones NEGATIVE mg/dL (NEGATIVE) Urine Occult Blood SMALL (NEGATIVE) H Urine Nitrate NEGATIVE (NEGATIVE) Urine Bilirubin NEGATIVE mg/dL (NEGATIVE) Urine Urobilinogen 0.2 mg/dL (0.2-1.0) Urine Leukocyte Esterase 25 Dameon/uL (NEGATIVE) H Urine RBC 6-10 /HPF (0-1) H Urine WBC 11-25 /HPF (0-1) H Urine Squamous Epithelial Cells FEW /HPF (0-2) Urine Bacteria FEW /HPF (None Seen) Urine Other Casts 1 /LPF (None Seen) Sodium Level 141 mmol/L (136-145) Potassium Level 3.3 mmol/L (3.5-5.1) L Chloride Level 102 mmol/L (101-111) Carbon Dioxide Level 30 mmol/L (21-32) Blood Urea Nitrogen 10 mg/dL (7-18) Creatinine 0.6 mg/dL (0.5-1.0) Glomerular Filtration Rate Calc 109 mL/min (>90) Random Glucose 101 mg/dL (70-105) Total Calcium 9.5 mg/dL (8.5-10.1) Labs Reviewed?: Yes MDM MDM: Differential diagnosis: Rationale: Tests considered and ordered secondary to shared decision making include: Previous outside records reviewed: Old ER visits. Risk of complication and/or morbidity or mortality of patient management: None Medications-Per medication reconciliation Need for hospitalization: Patient does not meet criteria for hospitalization. Need for emergency major/minor surgery: No There are no social concerns with this patient. Prescription drug management Prescriptions will include symptomatic care Patient's prior external medical records from other ER visits were reviewed by me as indicated. Prior testing and results from previous visits were reviewed. Prior tests were taken into account with medical decision making and resource utilization, independent historian/historians were used to obtain complete medical history. I independently interpreted the test that were performed, results were reviewed by me and considered findings on radiology if ordered. Medical management and examination interpretation discussions were had by me with other qualified healthcare professionals as indicated for the patient's care. ED Course Orders Procedure Category Date Status Time Cbc With Differential LAB 11/14/24 Complete 17:36 Basic Metabolic Panel LAB 11/14/24 Complete 17:36 Urinalysis LAB 11/14/24 Complete W/Microscopic 17:36 Culture Urine ADRY 11/14/24 Logged 18:01 Phenazopyridine Hcl PHA 11/14/24 Logged 200 Mg Tab (Pyridium 18:30 Potassium Bicarb/Cit PHA 11/14/24 Transmitted Ac 25meq (K-Lyte Ta 18:30 Current Medications Medications (Trade) Dose Ordered Sig/Kira Route PRN Reason Start Time Stop Time Status Last Admin Dose Admin Phenazopyridine HCl (PYRIdium HCL 200 MG TAB) 200 mg ONCE ONCE PO 11/14/24 18:30 11/14/24 18:31 UNV Vital Signs Date Time Temp Pulse Resp B/P (MAP) Pulse Ox O2 Delivery O2 Flow Rate FiO2 11/14/24 17:48 98.1 84 16 150/86 98 Room Air* 0 21 11/14/24 17:34 98.8 86 18 152/88 99 Room Air DX & DISP Disposition: Discharge Departure Impression: Primary Impression: UTI (urinary tract infection) Condition: Stable Additional Instructions: FOLLOW-UP WITH PRIMARY CARE PROVIDER IN 1 TO 2 DAYS. TAKE MEDICATIONS DIRECTED HERE IN THE EMERGENCY ROOM. OKAY TO CONTINUE HOME MEDICATIONS UNLESS OTHERWISE DISCUSSED DURING YOUR VISIT IN THE EMERGENCY ROOM TODAY. RETURN TO YOUR NEAREST EMERGENCY ROOM IF SYMPTOMS WORSEN OR IF THERE IS NO IMPROVEMENT. CALL 911 IF YOU NEED IMMEDIATE ASSISTANCE. TAKE TYLENOL [id number] NEEDED AND IF NO CONTRAINDICATIONS ARE PRESENT. INCREASE ORAL HYDRATION. A WOUND CULTURE OR URINE CULTURE WAS ORDERED HERE IN THE EMERGENCY ROOM DEPARTMENT PLEASE FOLLOW-UP WITH PRIMARY CARE PROVIDER AND ADVISE THEM TO GET REPORTS FROM OUR FACILITY. IF YOU HAD ANY LAYNE WRAP/SPLINTS THAT WERE APPLIED HERE, PLEASE DO NOT REMOVE THEM UNTIL YOU SEE YOUR PRIMARY CARE OR SPECIALTY. Referrals: Referrals: JOSIAH DELUCA MD (PCP) Time of Disposition: 18:22 SAEID BLAKE MD Nov 14, 2024 18:22
[2024-11-14] MEDS ORDERED: CEPH500B PO (18:25)
--- NOTE | 2024-11-14 19:08 | NUR ---
PT CARE ASSUMED AT THIS TIME
[2024-11-14 20:48] VITALS: BP 158/85; PULSE 89; RESP 17; TEMP 98.1; O2SAT 100
== END 2024-11-14 20:50 | disposition home or self-care (01) ==
LOC: EDH 17:32
DX: N39.0 Urinary tract infection, site not specified (principal); Z79.624 Long term (current) use of inhibitors of nucleotide synthesis; Z79.899 Other long term (current) drug therapy
CPT/HCPCS: 99284; 96374; 80048; 85025; 87086 ×3; 87186 ×2; 81001; 36415; J1885

== ENCOUNTER 2024-11-23 10:08 | Emergency (ER) | payer BC ==
[~2024-11-23] VITALS: Ht 152.4 cm; Wt 76.2 kg
[~2024-11-23 10:08] MED LIST changes: +CEPH500B PO
--- NOTE | 2024-11-23 10:14 | ERN ---
ED Note History of Present Illness Stated Complaint: BILATERAL FLANK PAIN Chief Complaint: Flank Pain Time Seen by MD: 10:09 Dictation: PATIENT IS A 54-YEAR-OLD FEMALE COMING IN TODAY WITH BILATERAL FLANK PAIN THAT RADIATES TO RIGHT LOWER QUADRANT WITH INTERMITTENT NAUSEA VOMITING ONSET FOUR SEVERAL DAYS. NO FEVER NO CHILLS NO CHANGE IN URINATION. SHE HAS ALREADY BEEN TO THE EMERGENCY ROOM ONCE AND WAS DIAGNOSED WITH A UTI AND PLACED ON CEPHALEXIN. SHE FOLLOWED UP WITH HER PRIMARY CARE DOCTOR WHO TOLD HER THAT SHE WOULD HAVE TO WAIT FOR THE APPROVAL OF HER CAT SCAN. SHE IS NOW BACK FOR FURTHER FOLLOW UP AND CARE AND UNRELIEVED PAIN. SHE STATES SHE HAS BEEN TAKING CRANBERRY JUICE AND CEPHALAD CEPHALEXIN/NAPROXEN WITH NO HELP Allergies: Coded Allergies: No Known Drug Allergies (Unverified Allergy, Unknown, 02/11/24) Home Meds Active Scripts Cephalexin Monohydrate (Keflex) 500 Mg Cap, 1 CAP PO BID for 10 Days, #20 CAP 0 Refills Prov:SAEID BLAKE MD 11/14/24 Nystatin (Nystatin) 100,000 Unit/Ml Oral.susp, 5 ML PO QID for 10 Days, #200 ML 0 Refills Prov:JOISAH MATHEW 09/26/24 Acyclovir (Acyclovir) 400 Mg Tablet, 1 TAB PO TID for 7 Days, #21 TAB 0 Refills Prov:JOSIAH MATHEW 09/26/24 Reported Medications Potassium Chloride (Potassium Chloride) 20 Meq Packet, 1 PACKET PO BID for 30 Days, #30 PACKET 0 Refills 02/24/24 Past Medical History Past Medical History: Cancer, Other Additional Past Medical Hx: DIVERTICULITIS Surgical History: None Family History: Negative Social History: Negative History: Not Applicable RN Note Reviewed/Agreed w/PFSH: Yes Review of System Dictation CONSTITUTIONAL: NEGATIVE EXCEPT FOR HPI HEAD/FACE: NEGATIVE EXCEPT FOR HPI EENT: NEGATIVE EXCEPT FOR HPI RESPIRATORY: NEGATIVE EXCEPT FOR HPI GASTROINTESTINAL/ABDOMINAL: NEGATIVE EXCEPT FOR HPI BILATERAL FLANK PAIN THAT RADIATES TO BILATERAL LOWER QUADRANTS NAUSEA VOMITING INTERMITTENT GENITOURINARY: NEGATIVE EXCEPT FOR HPI MUSCULOSKELETAL: NEGATIVE EXCEPT FOR HPI INTEGUMENTARY: NEGATIVE EXCEPT FOR HPI NEUROLOGICAL/PSYCH: NEGATIVE EXCEPT FOR HPI HEMATOLOGIC/LYMPHATIC: NEGATIVE EXCEPT FOR HPI ALL SYSTEMS NEGATIVE, EXCEPT NOTED ABOVE. 13 POINT REVIEW OF SYSTEMS ASSESSED AND ALL NEGATIVE EXCEPT FOR ABOVE. Initial Vital Sign VS Vital Signs Date Time Temp Pulse Resp B/P (MAP) Pulse Ox O2 Delivery O2 Flow Rate FiO2 11/23/24 10:09 98.4 96 16 129/84 99 Room Air Physical Exam Dictation VITAL SIGNS REVIEWED GENERAL APPEARANCE: ALERT, ORIENTED X 3, MODERATE ACUTE DISTRESS, WELL DEVELOPED, NOURISHED. HEAD AND FACE: NON-TRAUMATIC. EYES: PERRL, PINK CONJUNCTIVAS, EYELID NO TRAUMA, ANTERIOR CHAMBER WITH ARCUS SENILIS. EARS: PINNAS INTACT AND NO SIGNS OF TRAUMA OR ERYTHEMA EAR CANALS CLEAR AND NO DISCHARGE TM NO ERYTHEMA NOSE: NO DISCHARGE, NO BLEEDING. OROPHARYNX: MOUTH NORMAL, TONGUE PINK, PHARYNX CLEAR,NO ERYTHEMA, TONSILS NO EXUDATES, NO ABSCESSES NOTED, MUCOUS MEMBRANE MOIST NECK: SUPPLE, NON-TENDER, NO THYROMEGALY, NO MASSES, NO JVD, NO BRUITS BREAST:DEFERRED CHEST:NO TENDERNESS, NO CREPITUS, NO PARADOXICAL MOVEMENT, NO RETRACTIONS LUNGS:CLEAR, WELL-VENTILATED, SYMMETRIC, NO RALES, NO WHEEZING, NO RHONCHI, NO STRIDOR, GOOD BREATH SOUNDS BILATERALLY HEART: REGULAR RATE, REGULAR RHYTHM, NO MURMUR, NO GALLOPS VASCULAR: NO PERIPHERAL EDEMA, ABDOMEN: SOFT, POSITIVE BOWEL SOUNDS, NONDISTENDED, NO GUARDING, NONTENDER, NO REBOUND, NO MASSES NO HEPATOMEGALY, NO SPLENOMEGALY, NO LOPEZ'S SIGN, NO HERNIAS. NEGATIVE CVAT RECTAL: DEFERRED GENITAL: DEFERRED NEUROLOGICAL: NORMAL SPEECH, MOTOR FUNCTION INTACT, SENSORY FUNCTION INTACT MUSCULOSKELETAL: NECK NONTENDER, FULL RANGE OF MOTION, BACK NONTENDER, FULL RANGE OF MOTION, EXTREMITIES: NONTENDER, FULL RANGE OF MOTION SKIN: COLOR PINK, DRY, NO TURGOR, NO RASH, NO LACERATIONS, NO ABRASIONS, NO CONTUSIONS. LYMPHATIC: DEFERRED Results (Laboratory/Radiology) Laboratory/Radiology Laboratory Tests Test 11/23/24 10:22 White Blood Count 6.2 K/uL (4.8-10.8) Red Blood Count 4.22 MIL/uL (4.00-5.50) Hemoglobin 13.7 g/dL (12.0-16.0) Hematocrit 40.5 % (36-48) Mean Corpuscular Volume 96.0 fL (79-99) Mean Corpuscular Hemoglobin 32.5 pg (27.0-33.0) Mean Corpuscular Hemoglobin Concent 33.8 g/dL (32.0-36.0) Red Cell Distribution Width 15.6 % (11.0-15.5) H Platelet Count 253 K/uL (130-400) Mean Platelet Volume 10.5 fL (7.5-10.5) Immature Granulocyte % (Auto) 0.5 % (0-1) Neutrophils (%) (Auto) 64.5 % (40.0-77.0) Lymphocytes (%) (Auto) 22.5 % (21.0-51.0) Monocytes (%) (Auto) 9.6 % (3.0-13.0) Eosinophils (%) (Auto) 2.4 % (0.0-8.0) Basophils (%) (Auto) 0.5 % (0.0-5.0) Neutrophils # (Auto) 4.0 K/uL (1.8-7.7) Lymphocytes # (Auto) 1.4 K/uL (1.0-4.8) Monocytes # (Auto) 0.6 K/uL (0.1-1.0) Eosinophils # (Auto) 0.15 K/uL (0.00-0.70) Basophils # (Auto) 0.03 K/uL (0.00-0.20) Absolute Immature Granulocyte (auto 0.03 K/uL (0-1) Nucleated Red Blood Cells 0.0 % (0.0-0.19) Sodium Level 139 mmol/L (136-145) Potassium Level 3.7 mmol/L (3.5-5.1) Chloride Level 102 mmol/L (101-111) Carbon Dioxide Level 30 mmol/L (21-32) Blood Urea Nitrogen 7 mg/dL (7-18) Creatinine 0.5 mg/dL (0.5-1.0) Glomerular Filtration Rate Calc 113 mL/min (>90) Random Glucose 112 mg/dL (70-105) H Total Calcium 9.8 mg/dL (8.5-10.1) Lipase 24 U/L (16-77) CEDURE: ABD PEL WO - CT ABDOMEN/PELVIS W/O CONTRAST EXAM: CT Abdomen and Pelvis without IV contrast CLINICAL HISTORY: Bilateral flank pain that radiates to bilateral lower quadrants. TECHNIQUE: Thin collimated axial CT images of the abdomen and pelvis were obtained with sagittal and coronal reformatted images also submitted. CT scan is done according to ALARA (As Low As Reasonably Achievable). CONTRAST: None. COMPARISON: 03/15/2024 05:51 PM EST: CT: CT ABDOMEN/PELVIS W/O CONTRAST. FINDINGS: Unremarkable visualized lung parenchyma. No focal abnormality within the liver, gallbladder, pancreas, spleen, adrenals, or kidneys. There is no obvious bowel wall thickening. Bowel loops are normal in caliber without evidence of obstruction or ileus. The appendix is normal. There is no abnormality within the urinary bladder. Unremarkable reproductive organs. No lymphadenopathy. No free fluid. There is no acute osseous abnormality. Multilevel thoracolumbar spondylosis. IMPRESSIONS: No acute process in the abdomen or pelvis. No ureteric calculus. Multilevel thoracolumbar spondylosis. /E Labs Reviewed?: Yes ED Course ED Course Orders Procedure Category Date Status Time Cbc With Differential LAB 11/23/24 Complete 10:12 Urinalysis Profile LAB 11/23/24 Logged 10:12 0.9%Nacl 1000ml (Ns PHA 11/23/24 Complete 1000ml) 10:30 Ketorolac PHA 11/23/24 Complete Tromethamine 30mg/Ml 10:30 Ondansetron 4mg PHA 11/23/24 Complete Tablet (Zofran 4mg 10:30 Ct Abdomen/Pelvis W/O CT 11/23/24 Resulted Contrast 10:12 Lipase LAB 11/23/24 Complete 10:12 Basic Metabolic Panel LAB 11/23/24 Complete 10:12 Current Medications Medications (Trade) Dose Ordered Sig/Kira Route PRN Reason Start Time Stop Time Status Last Admin Dose Admin Ketorolac Tromethamine (toRADol) 30 mg ONCE ONCE IVP 11/23/24 10:30 11/23/24 10:31 DC Ondansetron HCl (zoFRAN 4MG TABLET) 4 mg ONCE ONCE PO 11/23/24 10:30 11/23/24 10:31 DC Sodium Chloride 1,000 ml @ 0 mls/hr ONCE ONCE IV 11/23/24 10:30 11/23/24 10:31 DC Vital Signs Date Time Temp Pulse Resp B/P (MAP) Pulse Ox O2 Delivery O2 Flow Rate FiO2 11/23/24 10:09 98.4 96 16 129/84 99 Room Air 1212/PATIENT WILL BE DISCHARGED HOME FROM WAITING ROOM. SHE WILL GIVEN IBUPROFEN P.O. AND TOLD TO FOLLOW UP WITH YOUR PRIMARY CARE DOCTOR FOR DEGENERATIVE CHANGES TO HER SPINE. CONTINUE KEFLEX FROM HER LAST ER VISIT. Medical Decision Making MDM MEDICAL DISCHARGE MAKING BASED ON BASIC LABS AND A CT TO RULE OUT UROLITHIASIS. WORKUP IS NEGATIVE CT THE ABDOMEN PELVIS WITHOUT CONTRAST DEMONSTRATES CARDIOTHORACIC SPONDYLOSIS ONLY NO STONES PATIENT TOLD TO TAKE IBUPROFEN FOR PAIN AND CONTINUE CEPHALEXIN FROM HER LAST ER VISIT SEE HER PRIMARY CARE DOCTOR DX & DISP Disposition: Discharge Departure Impression: Primary Impression: Thoracic spondylosis Additional Impression: Lumbar spondylosis Condition: Stable Scripts Ibuprofen (Ibuprofen 800 mg Tab) 800 Mg Tab 800 MG PO Q8H PRN for fever or pain, #30 TAB 0 Refills Prov: BENJAMIN MANJARREZ NP 11/23/24 Prednisone (Prednisone) 20 Mg Tablet 1 TAB PO AD for 6 Days, #14 TAB 0 Refills TAKE 1 TAB BY MOUTH THREE TIMES PER DAY X3 DAYS, THEN TAKE 1 TAB BY MOUTH TWICE A DAY X2 DAYS, THEN TAKE 1 TAB BY MOUTH ONCE A DAY X1 DAY. TAKE WITH FOOD Prov: BENJAMIN MANJARREZ NP 11/23/24 Additional Instructions: FOLLOW-UP WITH PRIMARY CARE PROVIDER IN 1 TO 2 DAYS. TAKE MEDICATIONS DIRECTED HERE IN THE EMERGENCY ROOM. OKAY TO CONTINUE HOME MEDICATIONS UNLESS OTHERWISE DISCUSSED DURING YOUR VISIT IN THE EMERGENCY ROOM TODAY. RETURN TO YOUR NEAREST EMERGENCY ROOM IF SYMPTOMS WORSEN OR IF THERE IS NO IMPROVEMENT. CALL 911 IF YOU NEED IMMEDIATE ASSISTANCE. TAKE TYLENOL OR MOTRIN [id number] NEEDED AND IF NO CONTRAINDICATIONS ARE PRESENT. INCREASE ORAL HYDRATION. A WOUND CULTURE OR URINE CULTURE WAS ORDERED HERE IN THE EMERGENCY ROOM DEPARTMENT PLEASE FOLLOW-UP WITH PRIMARY CARE PROVIDER AND ADVISE THEM TO GET REPEAT PORTS FROM OUR FACILITY. IF YOU HAD ANY LAYNE WRAP/SPLINTS THAT WERE APPLIED HERE, PLEASE DO NOT REMOVE THEM UNTIL YOU SEE YOUR PRIMARY CARE OR SPECIALTY. TAKE PREDNISONE DIRECTED DAILY WITH FOOD UNTIL GONE. TAKE IBUPROFEN DIRECTED EVERY 6-8 HOURS WITH FOOD FOR PAIN. CONTINUE CEPHALEXIN FROM YOUR LAST ER VISIT AND SEE YOUR PRIMARY CARE DOCTOR FOR CONTROL OF YOUR BACK PAIN. Referrals: JOSIAH DELUCA MD (PCP) Time of Disposition: 12:15 I have reviewed the case, and I agree with, Diagnosis and Plan BENJAMIN MANJARREZ NP Nov 23, 2024 10:14
[2024-11-23] MEDS ORDERED: 0.9%NACL 1000ML 1,000 ML IV ONE (10:30)
[2024-11-23 11:12] LABS: CREATININE 0.5 mg/dL (0.5-1.0); GLOMERULAR FILTR. RATE CALC 113.0 mL/min (>90); GLUCOSE,RANDOM 112.0 mg/dL (70-105); SODIUM SERUM 139.0 mmol/L (136-145); UREA NITROGEN, BLOOD 7.0 mg/dL (7-18)
[2024-11-23 11:15] LABS: IMMATURE GRANULOCYTE ABSOLUTE 0.03 K/uL (0-1); NUCLEATED RED BLOOD CELLS 0.0 % (0.0-0.19); PLATELET COUNT (AUTO) 253 K/uL (130-400); RED BLOOD CELL COUNT(AUTO) 4.22 MIL/uL (4.00-5.50); RED CELL DISTRIBUTION WIDTH 15.6 % (11.0-15.5); WHITE BLOOD COUNT (AUTO) 6.2 K/uL (4.8-10.8)
--- NOTE | 2024-11-23 12:02 | HMCIMG ---
EXAM: CT Abdomen and Pelvis without IV contrast CLINICAL HISTORY: Bilateral flank pain that radiates to bilateral lower quadrants. TECHNIQUE: Thin collimated axial CT images of the abdomen and pelvis were obtained with sagittal and coronal reformatted images also submitted. CT scan is done according to ALARA (As Low As Reasonably Achievable). CONTRAST: None. COMPARISON: 03/15/2024 05:51 PM EST: CT: CT ABDOMEN/PELVIS W/O CONTRAST. FINDINGS: Unremarkable visualized lung parenchyma. No focal abnormality within the liver, gallbladder, pancreas, spleen, adrenals, or kidneys. There is no obvious bowel wall thickening. Bowel loops are normal in caliber without evidence of obstruction or ileus. The appendix is normal. There is no abnormality within the urinary bladder. Unremarkable reproductive organs. No lymphadenopathy. No free fluid. There is no acute osseous abnormality. Multilevel thoracolumbar spondylosis. IMPRESSIONS: No acute process in the abdomen or pelvis. No ureteric calculus. Multilevel thoracolumbar spondylosis. /[place]
[2024-11-23] MEDS ORDERED: PRED20TA3 PO (12:16)
[2024-11-23] MEDS ORDERED: IBUP-2077 PO (12:16)
[2024-11-23 13:03] VITALS: BP 149/77; PULSE 87; RESP 16; TEMP 97.8; O2SAT 100
== END 2024-11-23 13:05 | disposition home or self-care (01) ==
LOC: EDH 10:08
DX: M47.814 Spondylosis without myelopathy or radiculopathy, thoracic region (principal); M47.816 Spondylosis without myelopathy or radiculopathy, lumbar region; Z79.624 Long term (current) use of inhibitors of nucleotide synthesis; Z79.899 Other long term (current) drug therapy
CPT/HCPCS: 36415; 74176; 80048; 83690; 85025; 99284